=== PATIENT | male | born 1945 | race African-American/Black ===

== ENCOUNTER 2021-01-30 18:56 | Inpatient (IN) | payer OTHER ==
[2021-01-30 22:01] LABS: POTASSIUM 3.8 mmol/L (3.5-5.1)
[2021-01-30 22:03] LABS: CALCIUM 9.2 mg/dL (8.5-10.1)
[2021-01-30 22:04] LABS: ALBUMIN 4.1 g/dl (3.4-5.0); BLOOD UREA NITROGEN 19.5 mg/dL (7-18); MAGNESIUM 2.4 mg/dL (1.8-2.4)
[2021-01-30 22:05] LABS: BASO % 0.3 % (0-2.0); EOS % 1.4 % (0-4.5); HEMATOCRIT 47.2 % (35.4-49); HEMOGLOBIN 15.9 GM/dL (11.7-16.9); LYMPH % 41.3 % (8-40); MCH 26.8 pg (25.7-33.7); MCHC 33.7 g/dl (32.0-35.9); MEAN CELL VOLUME 79.7 fl (80-96); MEAN PLT VOLUME 8.8 fl (7.5-11.1); MONO % 8.8 % (3.8-10.2); NEUT % 48.2 % (42.8-82.8); PLATELET COUNT 208 K/MM3 (134-434); RBC 5.93 M/mm3 (4.00-5.60); WHITE BLOOD COUNT 6.3 K/mm3 (4.0-10.0)
[2021-01-30 22:07] LABS: CREATININE 1.1 mg/dL (0.55-1.3); PHOSPHOROUS 3.7 mg/dL (2.5-4.9)
[2021-01-30 22:08] LABS: BILIRUBIN,TOTAL 0.4 mg/dL (0.2-1)
[2021-01-30] MEDS ORDERED: HALOPERIDOL LACTATE 5 MG/ML IM ONE (22:28)
[2021-01-30] MEDS ORDERED: LORazepam 2 MG/ML SDV VIAL IM ONE (22:28)
[2021-01-31] MEDS ORDERED: MELATONIN 5 MG TABLETS PO ONE ×2 (00:19→20:27)
[2021-01-31] MEDS ORDERED: MELATONIN 5 MG TABLETS ONE (00:19)
[2021-01-31] MEDS ORDERED: HALOPERIDOL LACTATE 5 MG/ML ONE (00:26)
[2021-01-31] MEDS ORDERED: LORazepam 2 MG/ML SDV VIAL ONE (00:27)
[2021-01-31] MEDS: ESCITALOPRAM OXALATE 20 MG TABLET PO SCH (09:05)
[2021-01-31] MEDS: ENOXAPARIN NA (PORCINE) 40 MG/0.4 ML DISP.SYRIN SQ SCH (09:05)
[2021-01-31] MEDS: amLODIPine BESYLATE 10 MG TABLET (FP) PO SCH (09:06)
[2021-01-31] MEDS: LISINOPRIL 20 MG TABLET PO SCH (09:07)
[2021-01-31] MEDS ORDERED: MEMANTINE HCL 10 MG TABLET (FP) PO SCH (10:00)
[2021-01-31 16:02] VITALS: BMI 26.1
[2021-01-31 17:42] LABS: BASO % 0.3 % (0-2.0); EOS % 1.4 % (0-4.5); HEMATOCRIT 46.1 % (35.4-49); HEMOGLOBIN 15.4 GM/dL (11.7-16.9); LYMPH % 35.7 % (8-40); MCH 26.6 pg (25.7-33.7); MCHC 33.5 g/dl (32.0-35.9); MEAN CELL VOLUME 79.4 fl (80-96); MEAN PLT VOLUME 8.2 fl (7.5-11.1); MONO % 10.2 % (3.8-10.2); NEUT % 52.4 % (42.8-82.8); PLATELET COUNT 183 K/MM3 (134-434); RDW 13.9 % (11.9-15.9)
[2021-01-31 18:03] LABS: POTASSIUM 3.7 mmol/L (3.5-5.1)
[2021-01-31 18:05] LABS: CALCIUM 9.4 mg/dL (8.5-10.1)
[2021-01-31 18:06] LABS: ALBUMIN 3.8 g/dl (3.4-5.0); BLOOD UREA NITROGEN 17.5 mg/dL (7-18); MAGNESIUM 2.5 mg/dL (1.8-2.4)
[2021-01-31 18:09] LABS: PHOSPHOROUS 2.8 mg/dL (2.5-4.9)
[2021-01-31 18:10] LABS: BILIRUBIN,TOTAL 0.6 mg/dL (0.2-1); TOT PROT 7.4 g/dl (6.4-8.2)
[2021-01-31] MEDS: MEMANTINE HCL 10 MG TABLET (FP) PO SCH (21:15)
[2021-01-31] MEDS ORDERED: PATIENT'S OWN MEDICATION (NON-FORMULARY) (Melatonin/Pyridoxine Hcl (B6) [Melatonin 3 Mg Ta PO SCH (22:00)
[2021-01-31] MEDS ORDERED: HALOPERIDOL LACTATE 5 MG/ML IM ONE (22:23)
[2021-02-01] MEDS ORDERED: ESCITALOPRAM OXALATE 10 MG TABLET ONE (09:58)
[2021-02-01] MEDS: MEMANTINE HCL 10 MG TABLET (FP) PO SCH ×2 (10:20→22:32)
[2021-02-01] MEDS: ATENOLOL 25 MG TABLET (FP) PO SCH (10:20)
[2021-02-01] MEDS: LISINOPRIL 20 MG TABLET PO SCH (10:20)
[2021-02-01] MEDS: amLODIPine BESYLATE 10 MG TABLET (FP) PO SCH (10:21)
[2021-02-01] MEDS: ESCITALOPRAM OXALATE 20 MG TABLET PO SCH (10:21)
[2021-02-01] MEDS: ENOXAPARIN NA (PORCINE) 40 MG/0.4 ML DISP.SYRIN SQ SCH (10:21)
[2021-02-01 14:52] LABS: EPI CELLS 8 /uL (0-25.1); HYALINE CASTS 0 /uL (0-3.1); URINE APPEARANCE CLEAR; URINE BACTERIA 590 /uL (0-1359); URINE BILIRUBIN NEGATIVE (NEGATIVE); URINE COLOR YELLOW; URINE GLUCOSE (UA) NEGATIVE (NEGATIVE); URINE KETONE NEGATIVE (NEGATIVE); URINE LEUK ESTERASE NEGATIVE (NEGATIVE); URINE NITRITE NEGATIVE (NEGATIVE); URINE PROTEIN NEGATIVE (NEGATIVE); URINE RBC 20 /uL (0-23.9); URINE WBC 34 /uL (0-25.8)
[2021-02-01 14:59] LABS: METHADONE, UR NEGATIVE ng/ml (CUTOFF=300); PHENCYCLIDINE,URINE NEGATIVE ng/ml (CUTOFF=25); URINE BENZODIAZEPINES NEGATIVE ng/ml (CUTOFF=200)
[2021-02-01 15:01] LABS: COCAINE, UR NEGATIVE ng/ml (CUTOFF=300); OPIATES, URI NEGATIVE ng/ml (CUTOFF=300); URINE AMPHETAMINES NEGATIVE ng/ml (CUTOFF=500); URINE BARBITURATES NEGATIVE ng/ml (CUTOFF=200)
[2021-02-01] MEDS ORDERED: CEPHALEXIN MONOHYDRATE 500 MG CAPSULE (UD) PO ONE (16:35)
[2021-02-01] MEDS ORDERED: OLANZapine 5 MG TABLET PO SCH (22:00)
[2021-02-02] MEDS ORDERED: ESCITALOPRAM OXALATE 10 MG TABLET ONE (09:08)
[2021-02-02] MEDS: LISINOPRIL 20 MG TABLET PO SCH (09:30)
[2021-02-02] MEDS: MEMANTINE HCL 10 MG TABLET (FP) PO SCH (09:31)
[2021-02-02] MEDS: ESCITALOPRAM OXALATE 20 MG TABLET PO SCH (09:31)
[2021-02-02] MEDS: ENOXAPARIN NA (PORCINE) 40 MG/0.4 ML DISP.SYRIN SQ SCH (09:31)
[2021-02-02] MEDS: ATENOLOL 25 MG TABLET (FP) PO SCH (09:31)
[2021-02-02] MEDS: amLODIPine BESYLATE 10 MG TABLET (FP) PO SCH (09:31)
[2021-02-02] MEDS ORDERED: CEPHALEXIN MONOHYDRATE 500 MG CAPSULE (UD) PO SCH (10:00)
[2021-02-02 14:29] VITALS: BP 112/65; PULSE 56; TEMP 98.2
== END 2021-02-02 17:18 | disposition home or self-care (01) | DRG 57 ==
LOC: JER 18:56 → JERBED 01-31 03:08 → J6S 01-31 15:18
PROVIDERS: ADMIT Internal Medicine; ATTEND Internal Medicine
DX: G30.9 Alzheimer's disease, unspecified (principal); F02.81 Dementia in other diseases classified elsewhere, unspecified severity, with behavioral disturbance; I10 Essential (primary) hypertension; R00.1 Bradycardia, unspecified
CPT/HCPCS: 36415; 70450-TC; 71045-TC-FY; 80053; 80307; 81003; 82550; 82607; 83735; 84100; 84443; 84484; 85025; 86780; 87086; 93005; 93010; 97116-GP; 97162-GP; 99285-25; C9803; U0003